=== PATIENT | male | born 1935 | race Caucasian/White ===

== ENCOUNTER 2017-12-02 07:04 | Day surgery (SDC) | payer MEDICARE ==
[~2017-12-02] VITALS: Ht 180.3 cm; Wt 63.5 kg
[~2017-12-02 07:04] MED LIST: ALEVE220 M1 PO; METAMUCIL0.52 G1 PO; ULTRAM50 M1 PO
[2017-12-02 09:26] VITALS: BP 140/79
== END 2017-12-02 09:45 | disposition home or self-care (01) ==
LOC: ENDO 07:04 → ORM 10:00
PROVIDERS: ATTEND Surgery
PROC: 0DJD8ZZ Inspection of Lower Intestinal Tract, Via Natural or Artificial Opening Endoscopic (ICD-10-PCS; principal; 2017-12-02)
DX: R19.7 Diarrhea, unspecified (principal); R14.0 Abdominal distension (gaseous)